=== PATIENT | male | born 1985 | race Caucasian/White ===

== ENCOUNTER 2023-01-30 15:45 | Emergency (ER) | payer OTHER, SELFPAY ==
[2023-01-30 15:54] VITALS: BP 113/76; PULSE 85; RESP 18; TEMP 36.6; O2SAT 98; BMI 31.0
--- NOTE | 2023-01-30 18:29 | ED_ITS ---
HPI - Extremity Problem General Chief complaint: Extremity Problem,Nontraumatic Stated complaint: Lump on arm, Bruising Time Seen by Provider: 01/30/23 18:16 Source: patient Mode of arrival: Ambulatory History of Present Illness HPI Narrative: Otherwise healthy 37-year-old gentleman active [employer] noticed a bump on the left upper forearm no obvious trauma recalled. Over the next couple of days noticed some purplish discoloration over the area and now brownish discoloration over the area. There is no tenderness, he is neurovascularly intact. [place] and recommended follow-up in a week he comes to the ER for confirmation. Related Data Allergies Allergy/AdvReac Type Severity Reaction Status Date / Time amoxicillin [From Augmentin] AdvReac Hives Verified 01/30/23 15:54 clavulanic acid AdvReac Hives Verified 01/30/23 15:54 [From Augmentin] Patient History Social History Smoking Status: Never smoker Smoking Status: Never smoker alcohol intake frequency: a few times a week Alcohol type: beer and wine Substance Use Type: does not use Exam Initial Vital Signs Initial Vital Signs: Vital Signs Temperature 97.9 F 01/30/23 15:54 Pulse Rate 85 01/30/23 15:54 Respiratory Rate 18 01/30/23 15:54 Blood Pressure 113/76 01/30/23 15:54 Pulse Oximetry 98 01/30/23 15:54 Oxygen Delivery Method Room Air 01/30/23 15:54 General: Alert appropriate in no acute distress Respiratory: Able to speak in full sentences, no obvious respiratory distress Skin: No obvious rashes, warm and dry Neurologic: Grossly intact no obvious asymmetries or abnormalities Psych: appropriate insight and affect, cooperative Left forearm with 2 cm area of resolving ecchymosis. Does feel like there was likely a deeper hematoma that is now worsening its way to the surface and being reabsorbed. There is no trauma to the forearm, no tenderness with flexion or extension of the wrist or the elbow he is neurovascularly intact. Course Vital Signs Vital signs: Vital Signs - 8 hr 01/30/23 15:54 Temperature 97.9 F Pulse Rate 85 Respiratory Rate 18 Blood Pressure 113/76 Pulse Oximetry 98 Oxygen Delivery Method Room Air MDM - Extremity (Nontraumatic) MDM Narrative Medical decision making narrative: CC: Bruise to left forearm. Subacute problem self-limited Data collected from: patient, Differential considered: Deep bruising, trauma, abscess Exam documented above, pertinent findings include: Discussion: Otherwise healthy 37-year-old gentleman with deeper bruise to the upper forearm 3 days after noticed initial firmness in the dermal area is now noticing bruising at appropriate stages of healing. Reassurance is given Discharge Plan Departure Patient Disposition: Home Clinical Impression: Contusion of forearm Qualifiers: Encounter type: initial encounter Laterality: left Qualified Code(s): S50.12XA - Contusion of left forearm, initial encounter Instructions: DI for Contusion Activity Restrictions/Additional Instructions: Thank you for coming in today The description of your concerning forearm area sounds very much like a deeper bruise, underneath the initial dermal layer. This was likely the bump that you are feeling. This is now working its way to the surface and you are seeing appropriate healing with appropriate stages of deeper bruise resolution. I expect that it will still take a number of days for the rest of the blood from the initial event to work its way to the surface. Heat can help the blood dissipate through the tissues and be absorbed more quickly. You do not have to do anything and it will resolve spontaneously. Please try to avoid picking poking or pulling at it. If you find that you are getting worse or develop any new symptoms, please feel free to return to the emergency department for further evaluation. Stand Alone Forms: Patient Portal/API
== END 2023-01-30 18:45 | disposition home or self-care (01) ==
PROVIDERS: Emergency Provider Emergency Medicine
DX: S40.022A Contusion of left upper arm, initial encounter (principal); X58.XXXA Exposure to other specified factors, initial encounter
CPT/HCPCS: 99281; 99282